=== PATIENT | male | born 1995 | race Caucasian/White ===

== ENCOUNTER 2018-01-05 00:38 | Emergency (ER) | payer OTHER ==
[2018-01-05] MEDS ORDERED: ONDANSETRON 4 MG/2 ML VIAL IVP ONE ×2 (00:44→01:15)
[2018-01-05] MEDS ORDERED: ONDANSETRON 4 MG/2 ML VIAL ONE (00:44)
[2018-01-05] MEDS ORDERED: NS 1,000 ML IV ONE ×3 (00:44→02:02)
--- NOTE | 2018-01-05 00:47 | EDPHY ---
H & P Stated Complaint: brought in by friends, +etoh, unresponsive Time Seen by Provider: 01/05/18 00:45 HPI/ROS: HPI CHIEF COMPLAINT: Alcohol Intoxication, lethargy HISTORY OF PRESENT ILLNESS: This is a 22-year-old male, presents emergency room by private vehicle he presents to ER room for extreme lethargic and intoxicated with alcohol. The history review of systems limited due to patient' s clinical state. He does respond to painful stimuli put not verbal stimuli. Past Medical History: Unknown medical history Past Surgical History: Unknown surgical history Social History: Unknown social history Family History: Unknown ROS REVIEW OF SYSTEMS: Limited due to patient's mental state. Exam Constitutional Intoxicated, triage nursing summary reviewed, vital signs reviewed, lethargy Eyes normal conjunctivae and sclera, horizontal beating nystagmus consistent acute alcohol intoxication, otherwise pupils equal and react to light HENT normal inspection, atraumatic, moist mucus membranes, no epistaxis, neck supple/ no meningismus, no raccoon eyes. Respiratory clear to auscultation bilaterally, normal breath sounds, no respiratory distress, no wheezing. Cardiovascular rate normal, regular rhythm, no murmur, no edema, distal pulses normal. Gastrointestinal soft, non-tender, no rebound, no guarding, normal bowel sounds, no distension, no pulsatile mass. Genitourinary no CVA tenderness. Musculoskeletal no midline vertebral tenderness, full range of motion, no calf swelling, no tenderness of extremities, no meningismus, good pulses, neurovascularly intact. Skin pink, warm, & dry, no rash, skin atraumatic. Neurologic Lethargic, minimally responsive. Differential Diagnosis: Includes but is not limited to in a particular order acute alcohol intoxication, alcohol abuse, dehydration, electrolyte abnormality , nausea vomiting from acute alcohol intoxication Medical Decision Making: Plan for this patient IV establishment blood draw, serum alcohol level, drug screen, CT scan head without contrast CT scan cervical spine without contrast, chest x-ray. Re-evaluation: Friends reported triage that he was doing a large amount of cocaine this evening as well as drinking large amount of liquor it is unclear exactly how much she drank with report large amount of fire ball. [id number]: Patient is more responsive now. Moving all his extremities. CT scan head without contrast and CT cervical spine without contrast negative called to me by Dr. Paredes. Serum alcohol level 341. Electrolytes are reviewed. Slightly low potassium IV potassium ordered. Otherwise electrolytes are normal. Normal glucose. 0230: Continue monitor patient for worsening sedation of alcohol, or monitor for sobriety. Once sober and able to ambulate well and answer questions appropriately he can be safely discharged from the emergency room. 0627: Patient is now alert and orient he is up talking me. He states that he drank too much alcohol last night he is from [place]. He states he drank too much alcohol he is unsure exactly how much she drank last night he is now lucid answer my questions appropriately he does not have any complaints at this time. 0655: Patient ambulated well throughout the emergency room with a steady gait. He is clinically sober. He has friends that going to pick him up. He denies any complaints. Source: Other Constitutional: Initial Vital Signs Heart Rate 91 01/05/18 00:42 Respiratory Rate 14 01/05/18 00:42 Blood Pressure 150/84 H 01/05/18 00:42 O2 Sat (%) 88 L 01/05/18 00:42 O2 Delivery Mode Nasal Cannula O2 (L/minute) 3 Medical Decision Making - Data Points Laboratory Results: Laboratory Results 01/05/18 00:44 01/05/18 03:57 01/05/18 01/05/18 01/05/18 06:47 03:57 00:49 WBC RBC Hgb Hct MCV MCH MCHC RDW Plt Count MPV Neut % (Auto) Lymph % (Auto) Island % (Auto) Eos % (Auto) Baso % (Auto) Nucleat RBC Rel Count Absolute Neuts (auto) Absolute Lymphs (auto) Absolute Monos (auto) Absolute Eos (auto) Absolute Basos (auto) Absolute Nucleated RBC Immature Gran % Immature Gran # PT INR APTT Sodium 151 mEq/L H mEq/L (135-145) Potassium 4.4 mEq/L mEq/L (3.3-5.0) Chloride 116 mEq/L H mEq/L (97-110) Carbon Dioxide 21 mEq/l L mEq/l (22-31) Anion Gap 14 mEq/L mEq/L (8-16) BUN 10 mg/dL mg/dL (7-23) Creatinine 0.8 mg/dL mg/dL (0.7-1.3) Estimated GFR > 60 Glucose 107 mg/dL H mg/dL (70-100) Calcium 7.2 mg/dL L mg/dL (8.5-10.4) Total Bilirubin Conjugated Bilirubin Unconjugated Bilirubin AST ALT Alkaline Phosphatase Total Protein Albumin Lipase Urine Color Pending Urine Appearance Pending Urine pH Pending Ur Specific [place] Pending Urine Protein Pending Urine Ketones Pending Urine Blood Pending Urine Nitrate Pending Urine Bilirubin Pending Urine Urobilinogen Pending Ur Leukocyte Esterase Pending Urine Glucose Pending Urine Opiates Screen Pending Urine Barbiturates Pending Ur Phencyclidine Scrn Pending Ur Amphetamine Screen Pending U Benzodiazepines Scrn Pending Urine Cocaine Screen Pending U Marijuana (THC) Screen Pending Ethyl Alcohol 341 mg/dL H mg/dL (0-10) 01/05/18 01/05/18 01/05/18 00:44 00:44 00:44 WBC 13.50 10^3/uL H 10^3/uL (3.80-9.50) RBC 5.34 10^6/uL 10^6/uL (4.40-6.38) Hgb 15.4 g/dL g/dL (13.7-17.5) Hct 45.7 % % (40.0-51.0) MCV 85.6 fL fL (81.5-99.8) MCH 28.8 pg pg (27.9-34.1) MCHC 33.7 g/dL g/dL (32.4-36.7) RDW 12.2 % % (11.5-15.2) Plt Count 312 10^3/uL 10^3/uL (150-400) MPV 10.0 fL fL (8.7-11.7) Neut % (Auto) 61.3 % % (39.3-74.2) Lymph % (Auto) 28.4 % % (15.0-45.0) Island % (Auto) 7.2 % % (4.5-13.0) Eos % (Auto) 2.0 % % (0.6-7.6) Baso % (Auto) 0.4 % % (0.3-1.7) Nucleat RBC Rel Count 0.0 % % (0.0-0.2) Absolute Neuts (auto) 8.28 10^3/uL H 10^3/uL (1.70-6.50) Absolute Lymphs (auto) 3.83 10^3/uL H 10^3/uL (1.00-3.00) Absolute Monos (auto) 0.97 10^3/uL H 10^3/uL (0.30-0.80) Absolute Eos (auto) 0.27 10^3/uL 10^3/uL (0.03-0.40) Absolute Basos (auto) 0.06 10^3/uL 10^3/uL (0.02-0.10) Absolute Nucleated RBC 0.00 10^3/uL 10^3/uL (0-0.01) Immature Gran % 0.7 % % (0.0-1.1) Immature Gran # 0.09 10^3/uL 10^3/uL (0.00-0.10) PT 14.1 SEC SEC (12.0-15.0) INR 1.07 (0.83-1.16) APTT 23.7 SEC SEC (23.0-38.0) Sodium 149 mEq/L H mEq/L (135-145) Potassium 2.9 mEq/L L mEq/L (3.3-5.0) Chloride 110 mEq/L mEq/L (97-110) Carbon Dioxide 17 mEq/l L mEq/l (22-31) Anion Gap 22 mEq/L H mEq/L (8-16) BUN 13 mg/dL mg/dL (7-23) Creatinine 0.8 mg/dL mg/dL (0.7-1.3) Estimated GFR > 60 Glucose 187 mg/dL H mg/dL (70-100) Calcium 9.1 mg/dL mg/dL (8.5-10.4) Total Bilirubin 0.5 mg/dL mg/dL (0.1-1.4) Conjugated Bilirubin 0.4 mg/dL mg/dL (0.0-0.5) Unconjugated Bilirubin 0.1 mg/dL mg/dL (0.0-1.1) AST 23 IU/L IU/L (17-59) ALT 28 IU/L IU/L (21-72) Alkaline Phosphatase 76 IU/L IU/L (38-126) Total Protein 7.5 g/dL g/dL (6.3-8.2) Albumin 4.5 g/dL g/dL (3.5-5.0) Lipase 164 IU/L IU/L (23-300) Urine Color Urine Appearance Urine pH Ur Specific [place] Urine Protein Urine Ketones Urine Blood Urine Nitrate Urine Bilirubin Urine Urobilinogen Ur Leukocyte Esterase Urine Glucose Urine Opiates Screen Urine Barbiturates Ur Phencyclidine Scrn Ur Amphetamine Screen U Benzodiazepines Scrn Urine Cocaine Screen U Marijuana (THC) Screen Ethyl Alcohol Medications Given: Discontinued Medications Sodium Chloride (Ns) 1,000 mls @ 0 mls/hr IV EDNOW ONE; Wide Open PRN Reason: Protocol Stop: 01/05/18 00:45 Last Admin: 01/05/18 00:47 Dose: 1,000 mls Sodium Chloride (Ns) 1,000 mls @ 0 mls/hr IV ONCE ONE PRN Reason: Wide Open Stop: 01/05/18 00:57 Last Admin: 01/05/18 00:56 Dose: 1,000 mls Potassium Chloride (Potassium Cl 20 Meq (Premix)) 100 mls @ 50 mls/hr IV EDNOW ONE Stop: 01/05/18 03:29 Last Admin: 01/05/18 01:59 Dose: 100 mls Sodium Chloride (Ns) 1,000 mls @ 0 mls/hr IV ONCE ONE PRN Reason: Wide Open Stop: 01/05/18 02:03 Last Admin: 01/05/18 02:03 Dose: 1,000 mls Ondansetron HCl (Zofran) 4 mg IVP EDNOW ONE Stop: 01/05/18 00:45 Last Admin: 01/05/18 00:48 Dose: 4 mg Ondansetron HCl (Zofran) 4 mg IVP EDNOW ONE Stop: 01/05/18 01:16 Last Admin: 01/05/18 01:17 Dose: 4 mg Departure - Departure Disposition: Home, Routine, Self-Care Clinical Impression: Alcoholic intoxication Qualifiers: Complication of substance-induced condition: uncomplicated Qualified Code(s): F10.920 - Alcohol use, unspecified with intoxication, uncomplicated Condition: Good Instructions: Alcohol Intoxication (ED), Abuse of Alcohol (ED) Referrals: NONE *PRIMARY CARE P,. [Primary Care Provider] - As per Instructions
[2018-01-05 00:53] LABS: PLATELET COUNT 312 10^3/uL (150-400)
[2018-01-05 01:03] LABS: INR 1.07 (0.83-1.16); PROTIME(PATIENT) 14.1 SEC (12.0-15.0)
[2018-01-05] MEDS ORDERED: POTASSIUM Cl (KCl) 100 ML IV ONE (01:30)
[2018-01-05] MEDS ORDERED: POTASSIUM Cl (KCl) 10 MEQ/100 ML BAG IV ONE ×2 (01:54→02:32)
[2018-01-05 07:02] VITALS: BP 127/90
== END 2018-01-05 07:15 | disposition home or self-care (01) ==
DX: F10.920 Alcohol use, unspecified with intoxication, uncomplicated (principal); E86.9 Volume depletion, unspecified
CPT/HCPCS: 80305; 96365; 96366; G0480; J2405; J3480